=== PATIENT | male | born 2000 | race African-American/Black ===

== ENCOUNTER 2022-08-04 14:52 | Emergency (ER) | payer MEDICAID, SELFPAY ==
[2022-08-04] VITALS (11 sets, daily range): BP systolic 129–149; BP diastolic 79–94; PULSE 84–101; RESP 16–20; TEMP 36.3–36.8; O2SAT 96–100
--- NOTE | ~2022-08-04 | XR_ITS ---
XR shoulder RT min 2V 08/04/2022 16:11 INDICATION: Status post reduction of shoulder dislocation PROCEDURE: 2 views right shoulder COMPARISON: No prior studies for comparison. FINDINGS: Fracture, dislocation or subluxation is not identified. The soft tissues appear within norm al limits. No foreign bodies are identified. IMPRESSION: 1: Anatomic alignment of the right shoulder post reduction. No underlying fracture. Reviewed, dictated and finalized at location B. T [employer] IMPRESSION: 1: Anatomic alignment of the right shoulder post reduction. No underlying fract ure.
--- NOTE | ~2022-08-04 | XR_ITS ---
XR shoulder RT 1V 08/04/2022 15:11 Indication: Shoulder dislocation Procedure: AP view of the right shoulder Comparison: No prior studies for comparison. Findings: There is right anterior shoulder dislocation no fracture identified. No significant soft ti ssue abnormality. No foreign body. Impression: 1: Right anterior shoulder dislocation. Reviewed, dictated and finalized at location B. [employer] WORKER Impression: 1: Right anterior shoulder dislocation.
--- NOTE | 2022-08-04 15:02 | ED.FALL ---
HPI - Fall General Chief Complaint: Fall Stated Complaint: glf possible dislocated r shoulder Source: patient and EMS Mode of arrival: EMS Limitations: no limitations History of Present Illness HPI Narrative: Patient is a 21-year-old male who presents for evaluation of right shoulder pain after he slipped outside. Patient states he slipped on a wet surface, and fell onto the right outstretched hand. Patient with immediate pain at the right shoulder, difficulty moving the arm. Patient denies any head trauma. No loss of conscious. Patient denies prodromal symptoms prior to the fall such as lightheadedness, dizziness, palpitations, chest pain. EMS was contacted, IV was placed in the left upper extremity and patient was transported in stable condition. Patient reports history of shoulder dislocation of the right upper extremity in the past. Patient denies numbness, weakness. He reports aching pain that is exacerbated with movement at the aspect of the right shoulder. Patient is left-hand dominant. Related Data Allergies Allergy/AdvReac Type Severity Reaction Status Date / Time shellfish derived Allergy Hives Verified 08/04/22 16:13 Review of Systems Review of Systems: CONSTITUTIONAL: Denies fever, chills, or sweats. CARDIOVASCULAR: Denies chest pain, palpitations, or edema. RESPIRATORY: Denies cough or dyspnea. GASTROINTESTINAL: Denies abdominal pain, nausea, vomiting, or diarrhea. GENITOURINARY: Denies dysuria or hematuria. SKIN: Denies rash or itching. MUSCULOSKELETAL: Denies back pain, reports right shoulder pain NEUROLOGIC: Denies headache, numbness, or weakness. . PMFSH Past Medical History Medical History (Updated 08/04/22 @ 16:17 by Heather Lora MD) Obesity Shoulder dislocation Social History Social History (Updated 08/04/22 @ 15:04 by Heather Lora MD) Smoking status: Never smoker Alcohol intake: never Substance use: never Occupation/Education: student Gender identity (if verbalized by the patient): Male Exam Narrative: Nursing note and vitals reviewed. CONSTITUTIONAL: The patient appears well-developed and well-nourished. No distress. HEAD: Normocephalic and atraumatic. EYES: PERRL, EOMI, normal conjunctiva, anicteric EARS: External ears clear bilaterally, no hemotympanum MOUTH: OP clear, no erythema, exudates NECK: midline trachea, supple, FROM. No midline cervical spinal tenderness. CARDIOVASCULAR: Normal rate, regular rhythm, normal heart sounds and intact distal pulses. No murmurs, rubs, gallops. PULMONARY: Effort normal and breath sounds normal. No respiratory distress. The patient has no wheezes, rales, rhonchi. No chest wall tenderness, crepitus or ecchymoses. ABDOMINAL: Soft. Nontender, nondistended. No palpable masses EXTREMITIES:: moving all extremities symmetrically. -RUE: There is squaring off of the right shoulder. No tenderness overlying the clavicle. Intact distal sensation. No pain with palpation of the elbow, wrist, and hand. Sensation intact M/U/R. Pulse 2+. -LUE: No deformity. Normal ROM at shoulder, elbow, wrist, and hand. Sensation intact M/U/R. Pulse 2+ -RLE: No deformity. Normal ROM at hip, knee, ankle. Sensation intact distally. -LLE: No deformity. Normal ROM at hip, knee, ankle. Sensation intact distally. NEUROLOGY: The patient is alert and oriented to person, place, and time. CN II-XII Course Vital Signs Vital signs: Vital Signs Temperature 36.3 C L 08/04/22 14:56 Pulse Rate 90 08/04/22 14:56 Respiratory Rate 16 08/04/22 14:56 Pulse Oximetry 98 08/04/22 14:56 Oxygen Delivery Room Air 08/04/22 14:56 Temperature 36.8 C 08/04/22 15:43 Pulse Rate 98 08/04/22 16:00 Respiratory Rate 16 08/04/22 16:00 Blood Pressure 129/80 08/04/22 16:00 Pulse Oximetry 100 08/04/22 16:00 Oxygen Delivery Nasal Cannula 08/04/22 16:00 Oxygen Flow Rate 2 08/04/22 16:00 Procedures Orthopedic Joint Reduction Joint #1:
[2022-08-04] MEDS: ONDANSETRON INJ 4 MG/2 ML VIAL IV PUSH (15:16)
[2022-08-04] MEDS: SODIUM CHLORIDE 0.9% IV 1,000 ML 999 ML IV CONT (15:17)
[2022-08-04] MEDS: fentaNYL CITRATE INJ (*CRX) 100 MCG/2 ML VIAL 50 MCG IV PUSH (15:17)
--- NOTE | 2022-08-04 15:20 | PC.NURSE ---
PT GIVEN AN ADDITIONAL 25MCG FENTANYL OREN HUERTA
[2022-08-04] MEDS: PROPOFOL IV EMULSION 200 MG/20 ML VIAL 50 MG IV PUSH (15:45)
--- NOTE | 2022-08-04 15:46 | PC.NURSE ---
20MG IVP PROPOFOL BY DR HUERTA
--- NOTE | 2022-08-04 15:47 | PC.NURSE ---
PROPOFOL [address] HUERTA
--- NOTE | 2022-08-04 15:48 | PC.NURSE ---
PROPOFOL 20MG IVP BY DR HUERTA
--- NOTE | 2022-08-04 15:49 | PC.NURSE ---
20MG IVP DR HUERTA PROPOFOL
== END 2022-08-04 17:00 | disposition home or self-care (01) ==
PROVIDERS: Emergency Provider Emergency Medicine
DX: S43.004A Unspecified dislocation of right shoulder joint, initial encounter (principal); W01.0XXA Fall on same level from slipping, tripping and stumbling without subsequent striking against object, initial encounter
CPT/HCPCS: 23650; 73020; 73030; 96374; 96375; 99285; A4565; J2405; J2704; J3010; J7030